=== PATIENT | male | born 1995 | race African-American/Black ===

== ENCOUNTER 2021-05-18 15:24 | Emergency (ER) | payer OTHER ==
[~2021-05-18] VITALS: Ht 177.8 cm; Wt 66.5 kg
[2021-05-18 17:18] VITALS: BP 132/72
[2021-05-18] MEDS: IOHEXOL 300 MG/ML 75 ML VIAL. IV ONE (17:23)
--- NOTE | 2021-05-18 17:34 | RAD ---
INDICATION: Reason: abdominal pain, n/v / Spl. Instructions: / History: COMPARISON: None. TECHNIQUE: Axial CT images were obtained through the abdomen and pelvis with intravenous contrast. One or more of the following individualized dose reduction techniques were utilized for this examinat ion: 1. Automated exposure control; 2. Adjustment of the mA and/or kV according to patient size; 3 . Use of iterative reconstruction technique. FINDINGS: Vascular: No abdominal aortic aneurysm. Hepatobiliary: No intrahepatic biliary duct dilation. Pancreas: No peripancreatic edema. Spleen: Spleen unremarkable. Renal/Bladder: No hydronephrosis. Gastrointestinal: The suspected appendix measures up to about 5 to 6 mm proximally and tapers to a sm all size distally. There is some mild indistinctness the fat within the region but this is also seen elsewhere within the mesentery rather than being localized to this region. No dilated loops of bowel to suggest obstruction. Mild degenerative changes the spine. IMPRESSION: * No evidence of bowel obstruction or appendicitis. * No hydronephrosis. Electronically signed by: Brennan Sellers MD (05/18/2021 5:32 PM) [id number]
[2021-05-18] MEDS: ONDANSETRON PF 4 MG/2 ML VIAL. IVP ONE (17:41)
[2021-05-18] MEDS: IV NORMAL SALINE 1,000ML 1,000 ML IV ONE (17:41)
--- NOTE | 2021-05-18 17:42 | PHYS DOC ---
Past History Past Surgical History: No Surgical History Alcohol Use: None General Adult EDM: Chief Complaint: NAUSEA/VOMITING/DIARRHEA HPI: HPI: Patient is a 25-year-old male who presents to the ER for nausea and vomiting along with generalized abdominal pain and chills that started this morning. Patient states that he took Zofran and Benadryl with his last dose of Zofran at 1415. Patient denies fevers, diarrhea, sick exposures, dysuria. Last bowel movement was yesterday. Patient is currently afebrile and his vital signs are stable. He was vaccinated with the majority of vaccine. Review of Systems: Review of Systems: 14 body systems of the review of systems have been reviewed. See HPI for pertinent positive and negative responses, otherwise all other systems are negative, nonpertinent or noncontributory Current Medications: Current Meds: Current Medications Medications (Trade) Dose Ordered Sig/Teresa Start Time Stop Time Status Last Admin Dose Admin Iohexol (Omnipaque 300 Mg/ml) 75 ml 1X ONCE 05/18/21 17:00 05/18/21 17:01 DC 05/18/21 17:23 75 ML Ondansetron HCl (Zofran) 4 mg 1X ONCE 05/18/21 16:45 05/18/21 16:47 DC Sodium Chloride 1,000 ml @ 1,000 mls/hr 1X ONCE 05/18/21 16:45 05/18/21 17:44 Allergies: Allergies: Allergies Coded Allergies Type Severity Reaction Last Updated Verified No Known Drug Allergies 05/18/21 No Physical Exam: PE: Constitutional: Well developed, well nourished, no acute distress, non-toxic appearance. [] HENT: Normocephalic, atraumatic, bilateral external ears normal, oropharynx moist, no oral exudates, nose normal. [] Eyes: PERRL, EOMI, conjunctiva normal, no discharge. [] Neck: Normal range of motion, no tenderness, supple, no stridor. [] Cardiovascular:Heart rate regular rhythm, no murmur [] Lungs & Thorax: Bilateral breath sounds clear to auscultation [] Abdomen: Bowel sounds normal, soft, no tenderness, no masses, no pulsatile masses. [] Skin: Warm, dry, no erythema, no rash. [] Back: No tenderness, no CVA tenderness. [] Extremities: No tenderness, no cyanosis, no clubbing, ROM intact, no edema. [] Neurologic: Alert and oriented X 3, normal motor function, normal sensory function, no focal deficits noted. [] Psychologic: Affect normal, judgement normal, mood normal. [] Current Patient Data: Labs: Laboratory Tests Test 05/18/21 17:10 White Blood Count 12.0 x10^3/uL Red Blood Count 5.83 x10^6/uL Hemoglobin 15.0 g/dL Hematocrit 45.1 % Mean Corpuscular Volume 77 fL Mean Corpuscular Hemoglobin 26 pg Mean Corpuscular Hemoglobin Concent 33 g/dL Red Cell Distribution Width 14.2 % Platelet Count 239 x10^3/uL Neutrophils (%) (Auto) 91 % Lymphocytes (%) (Auto) 5 % Monocytes (%) (Auto) 3 % Eosinophils (%) (Auto) 0 % Basophils (%) (Auto) 0 % Neutrophils # (Auto) 10.9 x10^3uL Lymphocytes # (Auto) 0.6 x10^3/uL Monocytes # (Auto) 0.4 x10^3/uL Eosinophils # (Auto) 0.0 x10^3/uL Basophils # (Auto) 0.0 x10^3/uL Sodium Level 138 mmol/L Potassium Level 4.7 mmol/L Chloride Level 98 mmol/L Carbon Dioxide Level 25 mmol/L Anion Gap 15 Blood Urea Nitrogen 21 mg/dL Creatinine 1.3 mg/dL Estimated GFR (Cockcroft-Gault) 82.8 BUN/Creatinine Ratio 16 Glucose Level 118 mg/dL Calcium Level 10.1 mg/dL Total Bilirubin 1.3 mg/dL Aspartate Amino Transf (AST/SGOT) 39 U/L Alanine Aminotransferase (ALT/SGPT) 37 U/L Alkaline Phosphatase 59 U/L Total Protein 10.0 g/dL Albumin 5.5 g/dL Albumin/Globulin Ratio 1.2 Lipase 63 U/L Current Medications Medications (Trade) Dose Ordered Sig/Teresa Route PRN Reason Start Time Stop Time Status Last Admin Dose Admin Ondansetron HCl (Zofran) 4 mg 1X ONCE IVP 05/18/21 16:45 05/18/21 16:47 DC 05/18/21 17:41 Sodium Chloride 1,000 ml @ 1,000 mls/hr 1X ONCE IV 05/18/21 16:45 05/18/21 17:44 DC 05/18/21 17:41 Iohexol (Omnipaque 300 Mg/ml) 75 ml 1X ONCE IV 05/18/21 17:00 05/18/21 17:01 DC 05/18/21 17:23 Vital Signs: Vital Signs Date Time Temp Pulse Resp B/P (MAP) Pulse Ox O2 Delivery O2 Flow Rate FiO2 05/18/21 17:18 98.1 82 16 132/72 (92) EKG: EKG: [] Radiology/Procedures: Radiology/Procedures: []PROCEDURE: CT ABD PELV W/ IV CONTRST ONLY INDICATION: Reason: abdominal pain, n/v / Spl. Instructions: / History: COMPARISON: None. TECHNIQUE: Axial CT images were obtained through the abdomen and pelvis with intravenous contrast. One or more of the following individualized dose reduction techniques were utilized for this examination: 1. Automated exposure control; 2. Adjustment of the mA and/or kV according to patient size; 3. Use of iterative reconstruction technique. FINDINGS: Vascular: No abdominal aortic aneurysm. Hepatobiliary: No intrahepatic biliary duct dilation. Pancreas: No peripancreatic edema. Spleen: Spleen unremarkable. Renal/Bladder: No hydronephrosis. Gastrointestinal: The suspected appendix measures up to about 5 to 6 mm proximally and tapers to a small size distally. There is some mild indistinctness the fat within the region but this is also seen elsewhere within the mesentery rather than being localized to this region. No dilated loops of bowel to suggest obstruction. Mild degenerative changes the spine. IMPRESSION: * No evidence of bowel obstruction or appendicitis. * No hydronephrosis. Electronically signed by: Bobbi Sellers MD (05/18/2021 5:32 PM) [id number] DICTATED AND SIGNED BY: BOBBI SELLERS MD DATE: 05/18/21 [id number] CC: RAY CHAVEZ APRN; NON,STAFF ~MTH0 0 Heart Score: C/O Chest Pain: N/A Risk Factors: Risk Factors: DM, Current or recent (<one month) smoker, HTN, HLP, family history of CAD, obesity. Risk Scores: Score 0 - 3: 2.5% MACE over next 6 weeks - Discharge Home Score 4 - 6: 20.3% MACE over next 6 weeks - Admit for Clinical Observation Score 7 - 10: 72.7% MACE over next 6 weeks - Early Invasive Strategies Course & Med Decision Making: Course & Med Decision Making Pertinent Labs and Imaging studies reviewed. (See chart for details) [] Patient is a 25-year-old male who presents to the ER for nausea, vomiting, g eneralized abdominal pain, and chills that started this morning. Work-up in the ER consisted of blood work, CT scan of abdomen, Covid testing. Covid testing takes approximately 2 days to resolve and he will be notified of those results when they become available, instructed to the self isolate pending results. CT scan of abdomen was unremarkable. Patient treated with fluids and nausea medication. Patient p.o. challenged in the emergency department and was able to tolerate oral intake. Patient was noted to have mild leukocytosis which is most likely due to vomiting. Remaining lab work unremarkable, it is likely that patient may be experiencing a viral illness, will be notified of COVID-19 results when available. I discussed with patient all findings and diagnostic testing as well as the need to follow-up with PCP for further evaluation and treatment or return to the ER if any new or worsening symptoms. Strict return precautions were also discussed at length. Patient voiced understanding and agreement with the plan. Patient is hemodynamically stable at the time of disposition. Edwin Disclaimer: Edwin Disclaimer: This electronic medical record was generated, in whole or in part, using a voice recognition dictation system. Departure Departure: Impression: Primary Impression: Person under investigation for COVID-19 Additional Impression: Nausea & vomiting Qualified Codes: R11.2 - Nausea with vomiting, unspecified Disposition: 01 HOME / SELF CARE / HOMELESS Condition: GOOD Referrals: NON,STAFF (PCP) Patient Instructions: Nausea and Vomiting Additional Instructions: You were seen in the ER today for nausea and vomiting. Your work-up is unremarkable. You were tested for COVID-19 and you will be notified of those results when they become available in approximately 2 days. Please self isolate until you receive these results. You are being discharged home with a prescription for Zofran for nausea. You can take this as directed. Increase your fluids. You can stick to a clear liquid diet over the next 24 hours which includes Gatorade, Jell-O, soups. Following 24 hours you can stick to a bland diet such as the brat diet which consists of bananas, rice, applesauce and toast. For any pains he can take Tylenol or ibuprofen. Please follow-up with your primary care provider tomorrow regarding your ER visit. If you develop severe abdominal pain, intractable nausea or vomiting, high fevers refractory to treatment, blood in your stools or vomit please return to the ER. EMERGENCY DEPARTMENT GENERAL DISCHARGE INSTRUCTIONS Thank you for coming to [facility] (ED) today and trusting us with you care. We trust that you had a positivie experience in our Emergency Department. If you wish to speak to the department management, you may call the director at [phone]. YOUR FOLLOW UP INSTRUCTIONS ARE FOLLOWS: 1. Do you have a private Doctor? If you do not have a private doctor, please ask for a resource list of physicians or clinics that may be able to assist you with follow up care. 2. The Emergency Physician has interpreted your x-rays. The X-Ray specialist will also review them. If there is a change in the findings, you will be notified in 48 hours when at all possible. 3. A lab test or culture has been done, your results will be reviewed and you will be notified if you need a change in treatment. ADDITIONAL INSTRUCTIONS AND INFORMATION: 1. Your care today has been supervised by a physician who is specially trained in emergency care. Many problems require more than one evaluation for a complete diagnosis and treatment. We recommend that you schedule your follow up appointment as recommended to ensure complete treatment of you illness or injury. If you are unable to obtain follow up care and continue to have a problem, or if your condition worsens, we recommend that you return to the ED. 2. We are not able to safely determine your condition over the phone nor are we able to give sound medical advice over the phone. For these safety reasons, if you call for medical advice we will ask you to come to the ED for further evaluation. 3. If you have any questions regarding these discharge instructions please call the ED at [phone]. SAFETY INFORMATION: In the interest of safety, wellness, and injury prevention; we encourage you to wear your sealbelt, if you smoke; quite smoking, and we encourage family to use a protective helmet for bicycling and other sporting events that present an increased risk for head injury. IF YOUR SYMPTOMS WORSEN OR NEW SYMPTOMS DEVELOP, OR YOU HAVE CONCERNS ABOUT YOUR CONDITION; OR IF YOUR CONDITION WORSENS WHILE YOU ARE WAITING FOR YOUR FOLLOW UP AP POINTMENT; EITHER CONTACT YOUR PRIMARY CARE DOCTOR, THE PHYSICIAN WHOSE NAME AND NUMBER YOU WERE GIVEN, OR RETURN TO THE ED IMMEDIATELY. Scripts Ondansetron (ONDANSETRON ODT) 4 Mg Tab.rapdis 1 TAB PO PRN Q6-8HRS for NAUSEA for 5 Days, #16 TAB 0 Refills Prov: RAY CHAVEZ APRN 05/18/21 RAY CHAVEZ APRN May 18, 2021 17:42
[2021-05-18 18:25] LABS: CALCIUM 10.1 mg/dL (8.5-10.1); CREATININE 1.3 mg/dL (0.7-1.3); GFR 82.8; POTASSIUM 4.7 mmol/L (3.5-5.1)
[2021-05-18 18:29] LABS: BASO % 0 % (0-3); EOS % 0 % (0-3); HEMATOCRIT 45.1 % (39.0-53.0); LYMPH # 0.6 x10^3/uL (1.0-4.8); LYMPH % 5 % (24-48); MEAN CORPUSCULAR HEMOGLOBIN 26 pg (25-35); MEAN CORPUSCULAR HGB CONC 33 g/dL (31-37); MEAN CORPUSCULAR VOLUME 77 fL (79-100); MONO # 0.4 x10^3/uL (0.0-1.1); MONO % 3 % (0-9); NEUT # 10.9 x10^3uL (1.8-7.7); NEUT % 91 % (31-73); PLATELET COUNT 239 x10^3/uL (140-400); RED BLOOD COUNT 5.83 x10^6/uL (4.30-5.70); RED CELL DISTRIBUTION WIDTH 14.2 % (11.5-14.5)
[2021-05-18 18:31] LABS: ALBUMIN 5.5 g/dL (3.4-5.0); ALBUMIN/GLOBULIN RATIO 1.2 (1.0-1.7); TOTAL BILIRUBIN 1.3 mg/dL (0.2-1.0)
[2021-05-18] MEDS ORDERED: ONDA4TAB12 PO (18:55)
== END 2021-05-18 19:05 | disposition home or self-care (01) ==
LOC: ER 15:24
DX: R11.2 Nausea with vomiting, unspecified (principal); R10.84 Generalized abdominal pain; Z20.822 Contact with and (suspected) exposure to COVID-19
CPT/HCPCS: 74177; 80053; 83690; 85025; 96361; 96374; 99285; C9803; J2405; J7030; Q9967; U0003